=== PATIENT | female | born 1975 | race Caucasian/White ===

== ENCOUNTER 2020-09-07 12:36 | Inpatient (IN) | payer MEDICAID ==
[~2020-09-07] VITALS: Ht 162.6 cm; Wt 97.4 kg
[~2020-09-07 12:36] MED LIST: ALBUAER3 IN; DIVA1TAB58 PO; FLUO-125 PO; FLUO60TA7 PO; FLUT250M2; LEVAAER4; LINA145C OR; LORA0.5T20 PO; OXCA600T40 PO; PANT40T PO; SUCR1SUS10 PO; TOPI100T29 PO
[2020-09-07] MEDS ORDERED: SODIUM CHLORIDE 0.9% 1,000 ML IV ONE (13:00)
[2020-09-07 13:18] LABS: Basophils # (auto) 0.1 10 ^3/uL (0-0.2); Basophils % (auto) 0.8 % (0.0-2.0); Eosinophils # (auto) 0.2 10 ^3/uL (0-0.8); Eosinophils % (auto) 2.1 % (0.0-7.0); Hematocrit 44.5 % (36.0-46.0); Hemoglobin 15.4 g/dL (12.2-16.2); Lymphocytes # (auto) 2.8 10 ^3/uL (0.4-5.4); Lymphocytes % (auto) 28.2 % (10.0-50.0); Mean Corpuscular Hemoglobin 30.8 pg (28.0-32.0); Mean Corpuscular Hgb Conc. 34.5 g/dL (32.0-36.0); Mean Corpuscular Volume 89.3 fL (80.0-100.0); Monocytes # (auto) 0.5 10 ^3/uL (0-1.3); Monocytes % (auto) 5.1 % (0.0-12.0); Neutrophils # (auto) 6.2 10 ^3/uL (1.6-8.6); Neutrophils % (auto) 63.8 % (37.0-80.0); Nucleated Red Blood Cells % 0.1 %; Platelet Count (auto) 348 10^3/uL (140-450); Red Blood Cells 4.99 10^6/uL (4.0-5.20); Red Cell Distribution Width 13.8 % (11.8-14.3); White Blood Cell 9.8 10^3/uL (4.4-10.8)
[2020-09-07 13:34] LABS: Albumin 3.3 g/dL (3.4-5.0); Anion Gap 6 (5-15); Blood Urea Nitrogen 8 mg/dL (7-18); Calcium 8.9 mg/dL (8.5-10.1); Carbon Dioxide 26 mmol/L (21-32); Chloride 107 mmol/L (98-107); Glucose 82 mg/dL (74-106); Magnesium 2.3 mg/dL (1.6-2.6); Potassium 3.7 mmol/L (3.5-5.1); Sodium 139 mmol/L (136-145)
[2020-09-07 13:40] LABS: Alanine Aminotransferase 26 U/L (13-56); Alkaline Phosphatase 127 U/L (45-117); Aspartate Aminotransferase 22 U/L (15-37); BUN/Creatinine Ratio 11.4; Bilirubin, Total 0.3 mg/dL (0.2-1.0); GFR African American 117 mL/min; GFR Non-African American 97 mL/min; Total Protein 7.5 g/dL (6.4-8.2)
[2020-09-07] MEDS ORDERED: ACETAMINOPHEN 325 MG TAB PO PRN (15:00)
[2020-09-07] MEDS ORDERED: MORPHINE SULF INJ 2 MG/ML SYRINGE 1ML IV PRN (15:00)
[2020-09-07] MEDS ORDERED: HYDROcodone-ACET 5/325MG TAB PO PRN (15:00)
[2020-09-07] MEDS ORDERED: NITROGLYCERIN 0.4 MG SL TAB SL PRN (15:00)
[2020-09-07] MEDS: SUCRALFATE 1 GM/10 ML ORAL SUSP PO SCH ×2 (17:26→22:11)
[2020-09-07 18:19] LABS: Urine Bacteria FEW /hpf (None Seen); Urine Blood Negative /uL (Negative); Urine Mucus FEW (None Seen); Urine Specific Gravity 1.018 (1.001-1.035); Urine WBC 18 /hpf (0 - 5)
[2020-09-07 18:27] LABS: Amphetamine Screen, Urine NEGATIVE (NEGATIVE); Barbiturate Scree,Urine POSITIVE (NEGATIVE); Benzodiazephine Screen, Urine POSITIVE (NEGATIVE); Cannabinoid Screen, Urine NEGATIVE (NEGATIVE); Cocaine Screen, Urine NEGATIVE (NEGATIVE); Opiate Scree,Urine NEGATIVE (NEGATIVE); Phencyclidine Screen, Urine NEGATIVE (NEGATIVE)
[2020-09-07] MEDS: LORazepam 2MG/ML-1ML VIAL IV PRN (18:32)
[2020-09-07] MEDS: FIORICET PO PRN (18:32)
[2020-09-07 20:00] VITALS: BP 118/78
[2020-09-07 21:49] VITALS: BP 118/79
[2020-09-07] MEDS ORDERED: TOPIRAMATE 100 MG TAB PO SCH (22:00)
[2020-09-07] MEDS: SODIUM CHLOR 0.9% PF (SALINE LOCK) 10ML VIAL/SYR IV SCH (22:09)
[2020-09-07] MEDS: TOPIRAMATE 100 MG TAB PO SCH (22:11)
[2020-09-07] MEDS: PANTOPRAZOLE 40 MG TAB PO SCH (22:11)
[2020-09-08] MEDS: MORPHINE SULFATE 4 MG/ML SYR/VIAL IV PRN ×2 (03:00→15:29)
[2020-09-08] MEDS: ONDANSETRON HCL 4 MG/2 ML VIAL IV PRN ×3 (03:07→18:35)
[2020-09-08 05:00] VITALS: BP 110/80
[2020-09-08] MEDS: SODIUM CHLOR 0.9% PF (SALINE LOCK) 10ML VIAL/SYR IV SCH ×3 (05:44→21:50)
[2020-09-08] MEDS: FIORICET PO PRN (06:56)
[2020-09-08] MEDS: LINACLOTIDE BASE 145 MCG PO SCH (06:56)
[2020-09-08] MEDS: SUCRALFATE 1 GM/10 ML ORAL SUSP PO SCH ×4 (06:56→21:50)
[2020-09-08 07:06] LABS: Basophils # (auto) 0 10 ^3/uL (0-0.2); Basophils % (auto) 0.6 % (0.0-2.0); Eosinophils # (auto) 0.3 10 ^3/uL (0-0.8); Eosinophils % (auto) 3.9 % (0.0-7.0); Hematocrit 40.9 % (36.0-46.0); Lymphocytes # (auto) 2.7 10 ^3/uL (0.4-5.4); Lymphocytes % (auto) 34.7 % (10.0-50.0); Mean Corpuscular Hemoglobin 30.9 pg (28.0-32.0); Mean Corpuscular Hgb Conc. 34.3 g/dL (32.0-36.0); Monocytes # (auto) 0.5 10 ^3/uL (0-1.3); Monocytes % (auto) 6.8 % (0.0-12.0); Neutrophils # (auto) 4.2 10 ^3/uL (1.6-8.6); Nucleated Red Blood Cells % 0.1 %; Platelet Count (auto) 318 10^3/uL (140-450); Red Blood Cells 4.54 10^6/uL (4.0-5.20); Red Cell Distribution Width 13.6 % (11.8-14.3); White Blood Cell 7.8 10^3/uL (4.4-10.8)
[2020-09-08 07:36] LABS: Albumin 2.8 g/dL (3.4-5.0); BUN/Creatinine Ratio 12.5; Bilirubin, Total 0.4 mg/dL (0.2-1.0); Total Protein 6.1 g/dL (6.4-8.2)
[2020-09-08 09:00] VITALS: BP 118/70
[2020-09-08] MEDS ORDERED: OXCARBAZEPINE PO SCH (10:00)
[2020-09-08] MEDS: FLUoxetine HCL 20 MG CAP PO SCH (10:00)
[2020-09-08] MEDS: PANTOPRAZOLE 40 MG TAB PO SCH ×2 (10:11→21:50)
[2020-09-08] MEDS: TOPIRAMATE 100 MG TAB PO SCH ×2 (10:12→21:50)
[2020-09-08] MEDS: LORazepam 2MG/ML-1ML VIAL IV PRN ×3 (10:24→20:50)
[2020-09-08 13:00] VITALS: BP 127/90
[2020-09-08 13:45] VITALS: BP 128/86
[2020-09-08] MEDS ORDERED: IOHEXOL 300 MG/ML 100ML BOTTLE IJ ONE (16:14)
[2020-09-08 17:00] VITALS: BP 121/78
[2020-09-08] MEDS ORDERED: PROMETHAZINE HCL 25 MG/ML 1ML IV PRN (18:15)
[2020-09-08] MEDS ORDERED: SODIUM CHL 0.9% IV PRN (18:30)
[2020-09-08] MEDS ORDERED: PROMETHAZINE IV PRN (18:30)
[2020-09-08 23:02] VITALS: BP 137/87
[2020-09-09 04:38] VITALS: BP 96/66
[2020-09-09] MEDS: SODIUM CHLOR 0.9% PF (SALINE LOCK) 10ML VIAL/SYR IV SCH ×3 (06:00→21:33)
[2020-09-09] MEDS: SUCRALFATE 1 GM/10 ML ORAL SUSP PO SCH ×4 (06:47→21:32)
[2020-09-09] MEDS: LINACLOTIDE BASE 145 MCG PO SCH (06:47)
[2020-09-09 09:00] VITALS: BP 102/71
[2020-09-09] MEDS: FLUoxetine HCL 20 MG CAP PO SCH (09:21)
[2020-09-09] MEDS: PANTOPRAZOLE 40 MG TAB PO SCH ×2 (09:29→21:32)
[2020-09-09] MEDS: TOPIRAMATE 100 MG TAB PO SCH ×2 (09:29→21:32)
[2020-09-09] MEDS ORDERED: FIORICET PO PRN (10:00)
[2020-09-09] MEDS: LORazepam 2MG/ML-1ML VIAL IV PRN ×3 (12:16→22:42)
[2020-09-09 13:00] VITALS: BP 125/93
[2020-09-09] MEDS ORDERED: MAGNESIUM CITRATE SOLUTION 300 ML BTL PO ONE (14:45)
[2020-09-09] MEDS ORDERED: ONDANSETRON HCL 4 MG/2 ML VIAL IV ONE (21:30)
[2020-09-09] MEDS: MORPHINE SULFATE 4 MG/ML SYR/VIAL IV PRN (21:33)
[2020-09-09 22:00] VITALS: BP 105/81
[2020-09-10 05:00] VITALS: BP 110/82
[2020-09-10] MEDS: SODIUM CHLOR 0.9% PF (SALINE LOCK) 10ML VIAL/SYR IV SCH ×3 (05:44→21:47)
[2020-09-10] MEDS: LINACLOTIDE BASE 145 MCG PO SCH (05:44)
[2020-09-10] MEDS: SUCRALFATE 1 GM/10 ML ORAL SUSP PO SCH ×4 (06:31→21:47)
[2020-09-10] MEDS: FLUoxetine HCL 20 MG CAP PO SCH (08:59)
[2020-09-10 09:00] VITALS: BP 92/67
[2020-09-10] MEDS: PANTOPRAZOLE 40 MG TAB PO SCH ×2 (09:15→21:47)
[2020-09-10] MEDS: TOPIRAMATE 100 MG TAB PO SCH (09:15)
[2020-09-10] MEDS: DOCUSATE SOD 100 MG CAP PO SCH (10:00)
[2020-09-10 13:00] VITALS: BP 145/64
[2020-09-10] MEDS: LORazepam 2MG/ML-1ML VIAL IV PRN ×2 (13:53→20:23)
[2020-09-10] MEDS: MORPHINE SULFATE 4 MG/ML SYR/VIAL IV PRN ×3 (14:12→22:48)
[2020-09-10 17:00] VITALS: BP 96/55
[2020-09-10] MEDS: CEPHALEXIN 250 MG CAP PO SCH ×2 (17:07→23:33)
[2020-09-10 22:00] VITALS: BP 95/74
[2020-09-10] MEDS ORDERED: TOPIRAMATE 100 MG TAB PO SCH (22:00)
[2020-09-10] MEDS ORDERED: LORazepam 2MG/ML-1ML VIAL IV ONE (22:30)
[2020-09-11] MEDS: MORPHINE SULFATE 4 MG/ML SYR/VIAL IV PRN (03:51)
[2020-09-11 04:58] VITALS: BP 95/61
[2020-09-11] MEDS: SODIUM CHLOR 0.9% PF (SALINE LOCK) 10ML VIAL/SYR IV SCH ×2 (05:00→14:20)
[2020-09-11] MEDS: LINACLOTIDE BASE 145 MCG PO SCH (06:40)
[2020-09-11] MEDS ORDERED: TOPIRAMATE 100 MG TAB PO SCH (07:00)
[2020-09-11] MEDS: CEPHALEXIN 250 MG CAP PO SCH ×2 (07:11→12:43)
[2020-09-11] MEDS: SUCRALFATE 1 GM/10 ML ORAL SUSP PO SCH ×2 (07:12→12:42)
[2020-09-11 09:00] VITALS: BP 98/67
[2020-09-11] MEDS: FLUoxetine HCL 20 MG CAP PO SCH (10:00)
[2020-09-11] MEDS: LORazepam 2MG/ML-1ML VIAL IV PRN ×2 (10:11→11:00)
[2020-09-11 10:56] VITALS: BP 124/83
[2020-09-11] MEDS: DOCUSATE SOD 100 MG CAP PO SCH (12:42)
[2020-09-11] MEDS: PANTOPRAZOLE 40 MG TAB PO SCH (12:42)
[2020-09-11 13:00] VITALS: BP 126/77
[2020-09-11] MEDS ORDERED: ONDANSETRON HCL 4 MG/2 ML VIAL IV PRN (13:00)
[2020-09-11] MEDS ORDERED: TOPI100T29 PO ×2 (14:14)
[2020-09-11] MEDS ORDERED: CEPH250C PO (14:14)
== END 2020-09-11 16:06 | disposition home health service (06) | DRG 53 ==
LOC: EDBD 12:36 → ER 12:36 → TELE 15:01 → TELE-CENTR 16:23
PROVIDERS: ADMIT Nurse Practitioner; ATTEND Internal Medicine
PROC: 05HY33Z Insertion of Infusion Device into Upper Vein, Percutaneous Approach (ICD-10-PCS; principal; 2020-09-09)
PROC: B54NZZA Ultrasonography of Left Upper Extremity Veins, Guidance (ICD-10-PCS; 2020-09-09)
DX: G40.409 Other generalized epilepsy and epileptic syndromes, not intractable, without status epilepticus (principal); K50.90 Crohn's disease, unspecified, without complications; N39.0 Urinary tract infection, site not specified; G43.109 Migraine with aura, not intractable, without status migrainosus; E66.9 Obesity, unspecified; F32.9 Major depressive disorder, single episode, unspecified; F41.9 Anxiety disorder, unspecified; J45.909 Unspecified asthma, uncomplicated; K21.9 Gastro-esophageal reflux disease without esophagitis; Z20.822 Contact with and (suspected) exposure to COVID-19; Z79.899 Other long term (current) drug therapy; Z80.41 Family history of malignant neoplasm of ovary; Z80.8 Family history of malignant neoplasm of other organs or systems; Z82.3 Family history of stroke; Z82.49 Family history of ischemic heart disease and other diseases of the circulatory system; Z83.3 Family history of diabetes mellitus; Z90.49 Acquired absence of other specified parts of digestive tract; Z91.81 History of falling; Z88.8 Allergy status to other drugs, medicaments and biological substances; Z88.2 Allergy status to sulfonamides; Z91.040 Latex allergy status; Z68.36 Body mass index [BMI] 36.0-36.9, adult; K62.5 Hemorrhage of anus and rectum
CPT/HCPCS: 36415; 70450; 71045; 74177; 74181; 80053; 80307; 81001; 82962; 83735; 84484; 84702; 85025; 87426; 93005; 96360; G0378; J2405